=== PATIENT | female | born 1960 | race Caucasian/White ===

== ENCOUNTER → 2017-11-25 | Outpatient (CLI) | payer OTHER ==
[~2017-11-25] MED LIST: LEVO-3 PO; LORA-629 PO; MULT-1335 PO; [UNRECOGNIZED DRUG - CODE] PO
--- NOTE | 2017-11-28 11:45 | RADIOLOGY IMAGING REPORT ---
FACILITY: [facility] [place] PATIENT NAME: ALIYA DICKEY : [id number] MR: [id number] V: [id number] EXAM DATE: ORDERING PHYSICIAN: TIGRE BARROS TECHNOLOGIST: Marilee Chirinos PROCEDURE:BILATERAL DIGITAL SCREENING MAMMOGRAM WITH CAD ASSISTED INTERPRETATION & 3D TOMOSYNTHESIS COMPARISON:Prior mammograms 09/24/16, 10/01/15, 01/24/15, 01/04/14, 12/22/12, 12/12/12 INDICATIONS:screening FINDINGS: Moderately dense fibroglandular tissue is again seen throughout the breasts. The area of postsurgical scaring from lumpectomy in the upper outer quadrant of the Right breast has remained stable. There is a focal area of dense irregular tissue in the lateral portion of Left breast on the left CC view for which spot compression view is recommended. There is also an area of increased density just above mid nipple line Zone 2 on the Left MLO view for which spot compression view is recommended. DIAGNOSTIC CATEGORY 0--INCOMPLETE: NEED ADDITIONAL IMAGING EVALUATION. RECOMMENDATIONS: ADDITIONAL MAMMOGRAPHIC VIEWS REQUIRED: LEFT BREAST. IMPRESSION: BIRADS 0: Incomplete Additional views of Left breast recommended as described Dictated by: Yesika Landry M.D. on 11/25/2017 at 12:04 Transcribed by: TANA on 11/25/2017 at 14:45 Approved by: Yesika Landry M.D. on 11/28/2017 at 11:44 [facility]
== END ==
LOC: MAMO 03:49
PROVIDERS: ATTEND Student in an Organized Health Care Education/Training Program
DX: Z12.31 Encounter for screening mammogram for malignant neoplasm of breast (principal); R92.8 Other abnormal and inconclusive findings on diagnostic imaging of breast
CPT/HCPCS: 77063; 77067

== ENCOUNTER → 2017-11-30 | Outpatient (CLI) | payer OTHER ==
--- NOTE | 2017-12-01 14:41 | RADIOLOGY IMAGING REPORT ---
FACILITY: [facility] - [place] PATIENT NAME: ALIYA DICKEY : [id number] MR: [id number] V: [id number] EXAM DATE: [id number] ORDERING PHYSICIAN: TIGRE BARROS TECHNOLOGIST: Marilee Chirinos PROCEDURE:LEFT DIGITAL DIAGNOSTIC MAMMOGRAM WITH CAD ASSISTED INTERPRETATION & 3D TOMOSYNTHESIS COMPARISON:Prior mammograms 11/25/17, 09/24/16, 10/01/15, 01/24/15, 01/04/14, 12/22/12, 12/12/12 INDICATIONS:FURTHER EVAL FINDINGS: The patient returns for a mediolateral view of the Left breast in addition to spot compression view in the Left CC and MLO projection and a rolled Left CC view. The focal area of increased density in the upper outer quadrant of the Left breast appeared to dissipate on the additional images. There is no demonstration of malignant appearing mass, or calcification of the Left breast. DIAGNOSTIC CATEGORY 2--BENIGN FINDING. RECOMMENDATIONS: ROUTINE MAMMOGRAM AND CLINICAL EVALUATION. IMPRESSION: BIRADS 2: Benign finding No significant abnormality of the Left breast is seen Dictated by: Yesika Landry M.D. on 11/30/2017 at 16:09 Transcribed by: TANA on 12/01/2017 at 11:47 Approved by: Yesika Landry M.D. on 12/01/2017 at 14:40 [facility]
== END ==
LOC: MAMO 13:48
PROVIDERS: ATTEND Student in an Organized Health Care Education/Training Program
DX: R92.2 Inconclusive mammogram (principal)
CPT/HCPCS: 77065

== ENCOUNTER → 2018-06-21 | Outpatient (CLI) | payer OTHER ==
--- NOTE | 2018-06-22 13:51 | RADIOLOGY IMAGING REPORT ---
FACILITY: [facility] PATIENT NAME: ALIYA DICKEY : [id number] MR: [id number] V: [id number] EXAM DATE: [id number] ORDERING PHYSICIAN: ROSIE LORENZO TECHNOLOGIST: Augustine Alvarado RDMS, [facility] PROCEDURE:US LEFT BREAST COMPARISON:None. INDICATIONS:LUMP FINDINGS: The lateral portion of the Left breast was imaged from the 12-6 o'clock position revealing no sonographic abnormality. Clinical follow-up recommended for patient's palpable findings. DIAGNOSTIC CATEGORY 1--NEGATIVE. RECOMMENDATIONS: ROUTINE MAMMOGRAM AND CLINICAL EVALUATION. CLINICAL EVALUATION. IMPRESSION: BIRADS 1: Negative. No significant abnormality is identified along the lateral portion of the Left breast to account for patient's palpable findings therefore clinical follow-up recommended. Dictated by: Yesika Landry M.D. on 06/21/2018 at 15:37 Transcribed by: TANA on 06/21/2018 at 15:50 Approved by: Yesika Landry M.D. on 06/22/2018 at 13:50 [facility]
--- NOTE | 2018-06-22 13:51 | RADIOLOGY IMAGING REPORT ---
FACILITY: [facility] PATIENT NAME: ALIYA DICKEY : [id number] MR: [id number] V: [id number] EXAM DATE: [id number] ORDERING PHYSICIAN: ROSIE LORENZO TECHNOLOGIST: Marilee Chirinos PROCEDURE:LEFT DIGITAL DIAGNOSTIC MAMMOGRAM WITH CAD ASSISTED INTERPRETATION & 3D TOMOSYNTHESIS COMPARISON:Prior mammograms 11/30/17, 11/25/17, 09/24/16, 10/01/15, 01/24/15, 01/04/14. INDICATIONS:PALPABLE LUMP ALONG THE LATERAL ASPECT OF THE LEFT BREAST. FINDINGS: Moderately dense heterogeneous fibroglandular tissue is seen throughout the Left breast. The parenchymal pattern has remained stable allowing for difference in mammographic technique & patient positioning. There is no evidence of malignant appearing mass, malignant appearing calcifications or other secondary sign of malignancy in the Left breast. Today's Left breast Ultrasound revealed no sonographic correlate. DIAGNOSTIC CATEGORY 1--NEGATIVE. RECOMMENDATIONS: ROUTINE MAMMOGRAM AND CLINICAL EVALUATION. CLINICAL EVALUATION. IMPRESSION: BIRADS 1: Negative. No significant abnormality is seen therefore clinical follow-up recommended for patient's palpable findings in the lateral portion of the Left breast. Dictated by: Yesika Landry M.D. on 06/21/2018 at 15:36 Transcribed by: TANA on 06/21/2018 at 15:46 Approved by: Yesika Landry M.D. on 06/22/2018 at 13:50 [facility]
== END ==
LOC: MAMO 02:14
PROVIDERS: ATTEND Obstetrics & Gynecology
DX: Z12.31 Encounter for screening mammogram for malignant neoplasm of breast (principal); N63.20 Unspecified lump in the left breast, unspecified quadrant
CPT/HCPCS: 77061; 77065

== ENCOUNTER 2019-04-06 06:30 | Emergency (ER) | payer OTHER ==
[2019-04-06 06:34] VITALS: BP 124/91
[2019-04-06] MEDS ORDERED: SERT-173 PO (06:42)
[2019-04-06] MEDS ORDERED: TRAZ100T31 PO (06:42)
[2019-04-06] MEDS ORDERED: SULF-198 PO (06:55)
[2019-04-06] MEDS ORDERED: TRIMETH/SULFA DS 160-800MG TAB PO ONE (06:55)
[2019-04-06] MEDS ORDERED: LIDOCAINE 1% MDV 200 MG/20 ML INJ ONE (06:55)
[2019-04-06] MEDS ORDERED: cefTRIAXone 1 GM VIAL IM ONE (06:55)
--- NOTE | 2019-04-06 06:58 | ER Report ---
History and Physical Time Seen By MD: 06:35 Hx. of Stated Complaint: patient states she was bit by something yesterday morning in left forearm, she is unsure of what, but yesterday she was just having pain in arm. She iced arm and took antiinflammatory meds yesterday. This morning she woke up, area was really swollen and reddened, hard to touch. HPI/ROS CHIEF COMPLAINT: swelling and warmth on arm HISTORY OF PRESENT ILLNESS: This is a 58 year old female. She has an area on her left forearm that is swelling, painful and warm. Site of what appears to be a bug bite yesterday. No necrosis or pustules noted. wide area of raised skin that is red. No fevers noted. No other skin lesions. Allergies: Coded Allergies: Penicillins (Verified Allergy, Intermediate, red spots, wheezing, 10/11/17) animal dander (Verified Allergy, Intermediate, congestion/nasal drainage/itchy eyes, 04/06/19) perfume (Unverified Allergy, Unknown, UNKNOWN, 03/03/18) Uncoded Allergies: pollen (Allergy, Intermediate, congestion/itchy eyes, nasal drainage, 04/06/19) Home Meds Active Scripts Sulfamethoxazole/Trimet 800-160 Mg Tab (BACTRIM DS TABLET) 1 Each Tablet, 1 TAB PO Q12H, #20 TAB 0 Refills Prov:STEVE GUIDO MD 04/06/19 Reported Medications Trazodone Hcl (TRAZODONE HCL) 100 Mg Tablet, 100 MG PO QHS PRN for INSOMNIA, TAB 04/06/19 Sertraline Hcl (ZOLOFT) 100 Mg Tablet, 1 TAB PO QDAY, TAB 04/06/19 Loratadine (LORATADINE) 10 Mg Tablet, 10 MG PO QDAY 10/11/17 Multivitamin With Minerals (MULTIPLE VITAMIN) 1 Each Tablet, 1 EACH PO QDAY, TAB 10/11/17 Levothyroxine Sodium (LEVOTHYROXINE SODIUM) 100 Mcg Tablet, 100 MCG PO QDAY, TAB 10/11/17 Discontinued Reported Medications Calcium Polycarbophil (FIBER-TABS) 625 Mg Tablet, 2 TAB PO QDAY 10/11/17 Reviewed Nurses Notes: Yes Hx Smoking: No Smoking Status: Never Smoker Exposure to Second Hand Smoke?: Yes (growing up father smoked) Hx Substance Use Disorder: No Hx Alcohol Use: Yes (1 per wk) Constitutional Vital Sign - Last 24 Hours 04/06/19 04/06/19 06:34 07:00 Temp 97.8 Pulse 69 64 Resp 24 B/P (MAP) 124/91 Pulse Ox 94 93 Physical Exam General: Alert, no distress. Skin: Appears to have bug bite on forearm. about 4 cm radius of redness and induration around this. Warmth and tenderness. No fluctuance. Cardiovascular: Normal pulses and cap refill. Neuro: Normal sensation. Medical Decision Making ED Course/Re-evaluation ED Course Rocephin 1g IM given. Bactrim DS started. Patient to use warm compresses and follow-up with primary care early next week. Decision to Disposition Date: Apr 06, 2019 Decision to Disposition Time: 06:51 Depart Departure Latest Vital Signs Vital Signs Date Time Temp Pulse Resp B/P (MAP) Pulse Ox O2 Delivery O2 Flow Rate FiO2 04/06/19 07:00 64 93 04/06/19 06:34 97.8 24 124/91 Impression: Primary Impression: Cellulitis Additional Impression: Insect bite Condition: Improved Disposition: HOME OR SELF-CARE Referrals: YAMILET BARKSDALE PA-C (PCP) New Scripts Sulfamethoxazole/Trimet 800-160 Mg Tab (BACTRIM DS TABLET) 1 Each Tablet 1 TAB PO Q12H, #20 TAB 0 Refills Prov: STEVE GUIDO MD 04/06/19 Patient Instructions: Cellulitis (ED) Additional Instructions: The redness on your arm represents possible infection. A bug bite causes a break in the skin and normal bacteria on the skin can cause an infection under the skin. We recommend starting the antibiotic Bactrim DS twice a day for 10 days. Use a warm compress for about 15-20 minutes every hour. This will either resolve or form a pocket of pus called an abscess. If an abscess develops, this will need to drain and will either drain on it's own or need to be drained. Please follow-up with us or your regular provider if needing to drain an abscess, which is likely to happen after 3-5 days. You can use tylenol or Ibuprofen as needed for pain. You can use Benadryl or other anti-histamines to help with swelling as well. Problem Qualifiers Primary Impression: Cellulitis Site of cellulitis: extremity Site of cellulitis of extremity: upper extremity Laterality: left Qualified Codes: L03.114 - Cellulitis of left upper limb Additional Impression: Insect bite Encounter type: initial encounter Site of insect bite: forearm Laterality: left Qualified Codes: S50.862A - Insect bite (nonvenomous) of left forearm, initial encounter; W57.XXXA - Bitten or stung by nonvenomous insect and other nonvenomous arthropods, initial encounter STEVE GUIDO MD Apr 06, 2019 06:58
== END 2019-04-06 07:18 | disposition home or self-care (01) ==
LOC: ER 06:55
DX: L03.114 Cellulitis of left upper limb (principal); S50.862A Insect bite (nonvenomous) of left forearm, initial encounter
CPT/HCPCS: 96372; 99283; J0696; J2001